=== PATIENT | female | born 1940 | race Caucasian/White ===

== ENCOUNTER 2018-01-28 08:52 | Emergency (ER) | payer BC, MEDICARE ==
--- NOTE | 2018-01-28 09:50 | EDM.PDOC ---
ED HPI GENERAL MEDICAL PROBLEM - General Chief Complaint: Upper Extremity Injury/Pain Stated Complaint: LEFT ARM CANNOT MOVE IT Time Seen by Provider: 01/28/18 09:49 Source of Information: Reports: Patient History Limitations: Reports: No Limitations - History of Present Illness INITIAL COMMENTS - FREE TEXT/NARRATIVE: pt fell abut 10 thirty last nite and hit her left elebow, She now is not able to move the arm without pain and she can not extend the arm. Onset: Other (pt fell last nite. ) Duration: Hour(s): Location: Reports: Upper Extremity, Left Associated Symptoms: Reports: No Other Symptoms, Other (pt has normal sensation in the hand and she has a good pulse present. ) Left Elbow Pain Score (Numeric/FACES): 3 - Related Data Allergies Allergy/AdvReac Type Severity Reaction Status Date / Time aspirin Allergy Cannot Verified 01/28/18 09:25 Remember bee venom protein (honey bee) Allergy Anaphylactic Verified 01/28/18 09:25 Shock Home Meds: Home Meds Ca Carbonate/Vitamin D3/Vit K [Calcium + D Soft Chewable Tab] 1 tab PO ASDIRECTED 01/28/18 [History] EPINEPHrine [Epinephrine] 01/28/18 [History] Simvastatin [Zocor] 40 mg PO DAILY 01/28/18 [History] Past Medical History HEENT History: Reports: Impaired Vision, Other (See Below) Other HEENT History: tenitis Cardiovascular History: Reports: 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: - Infectious Disease History Infectious Disease History: Reports: Chicken Pox, Mumps, Other (See Below) Other Infectious Disease History: polio - Past Surgical History GI Surgical History: Reports: Cholecystectomy Social & Family History - Tobacco Use Smoking Status *Q: Never Smoker - Caffeine Use Caffeine Use: Reports: Coffee - Alcohol Use Days Per Week of Alcohol Use: 7 Number of Drinks Per Day: 1 Total Drinks Per Week: 7 - Recreational Drug Use Recreational Drug Use: No Review of Systems - Review of Systems Review Of Systems: See Below Constitutional: Reports: No Symptoms Eyes: Reports: No Symptoms Ears: Reports: No Symptoms Nose: Reports: No Symptoms Mouth/Throat: Reports: No Symptoms Respiratory: Reports: No Symptoms Cardiovascular: Reports: No Symptoms GI/Abdominal: Reports: No Symptoms Musculoskeletal: Reports: Other (pain and swelling in the left elebow. ) Skin: Reports: No Symptoms Neurological: Reports: No Symptoms ED EXAM, GENERAL - Physical Exam Exam: See Below Free Text/Narrative:: Pt has pain and swelling in the left elebow. She has an area where the skin is tented . Thre are no open lesions. Exam Limited By: No Limitations General Appearance: Alert, Anxious Extremities: Other ( left elebow is swollen and there is an area where the skin is tented. An xray revealed a fraCTURE IN THE DISTAL HUMERUS WITH DISPLACEMENT. sHE HAS A NORMAL PULSE. Ira HAS NORMAL SENSATION IN THE HAND. ) Neurological: Alert, Oriented Course - Vital Signs Last Recorded V/S: Last Vital Signs Temp 36.0 C 01/28/18 09:27 Pulse 65 01/28/18 09:27 Resp 16 01/28/18 09:27 BP 139/55 L 01/28/18 09:27 Pulse Ox 95 01/28/18 09:27 - Orders/Labs/Meds Orders: Active Orders 24 hr Category Date Time Status Elbow 2V Lt [CR] Stat Exams 01/28/18 09:48 Taken - Re-Assessments/Exams Free Text/Narrative Re-Assessment/Exam: 01/28/18 11:33 PT WAS IMBOLIZED. dR Peters WAS CONSULTED AND A PICTURE OF THE XRAY WAS SENT TO THE dR. tHE PT WAS DIRECTED TO GO TO THE [facility] er Departure - Departure Time of Disposition: 11:34 Disposition: DC/Tfer to Acute Hospital 02 Condition: Fair Clinical Impression: Fracture of distal end of humerus - Discharge Information Referrals: PCP,None [Primary Care Provider] - Forms: ED Department Discharge Care Plan Goals: PER dR PETERS THE PT IS TO GO TO THE ER [facility]. XRAYS WERE PLACED ON DISCK - My Orders Last 24 Hours: My Active Orders 01/28/18 09:48 Elbow 2V Lt [CR] Stat - Assessment/Plan Last 24 Hours: My Active Orders 01/28/18 09:48 Elbow 2V Lt [CR] Stat
--- NOTE | 2018-01-30 09:09 | CR ---
Elbow 2V Lt CLINICAL HISTORY: Pain FINDINGS: Patient has a posteriorly displaced epicondylar fracture of the distal humerus. Radius and ulna appear intact. Impression: Displaced epicondylar fracture
== END 2018-01-28 11:47 ==
LOC: JP.ED 08:52
DX: S42.402A Unspecified fracture of lower end of left humerus, initial encounter for closed fracture (principal); E78.00 Pure hypercholesterolemia, unspecified; Z88.6 Allergy status to analgesic agent; Z91.030 Bee allergy status; Z79.899 Other long term (current) drug therapy
CPT/HCPCS: 73070-26-LT; 73070-LT; 99284

== ENCOUNTER 2018-03-25 08:32 | Emergency (ER) | payer MEDICARE ==
[2018-03-25] MEDS ORDERED: Acetaminophen 325 MG Tab PO ONE (09:18)
--- NOTE | 2018-03-25 09:20 | EDM.PDOC ---
ED HPI GENERAL MEDICAL PROBLEM - General Chief Complaint: Upper Extremity Injury/Pain Stated Complaint: R WRIST INJURY Time Seen by Provider: 03/25/18 09:16 Source of Information: Reports: Patient, Family, RN Notes Reviewed History Limitations: Reports: No Limitations - History of Present Illness INITIAL COMMENTS - FREE TEXT/NARRATIVE: 77-year-old female presents emergency department today after a fall on outstretched right hand earlier this morning, she has an obvious deformity pain is controlled no other complaints no loss of consciousness no head injury Right Wrist Pain Score (Numeric/FACES): 10 - Related Data Allergies Allergy/AdvReac Type Severity Reaction Status Date / Time aspirin Allergy Cannot Verified 03/25/18 09:27 Remember bee venom protein (honey bee) Allergy Anaphylactic Verified 03/25/18 09:27 Shock Home Meds: Home Meds Ca Carbonate/Vitamin D3/Vit K [Calcium + D Soft Chewable Tab] 1 tab PO ASDIRECTED 01/28/18 [History] EPINEPHrine [Epinephrine] 1 injection IM ASDIRECTED 01/28/18 [History] Simvastatin [Zocor] 40 mg PO DAILY 01/28/18 [History] oxyCODONE 1 tab PO ASDIRECTED 03/25/18 [History] oxyCODONE HCl/Acetaminophen [Oxycodone-Acetaminophen 5-325] 1 - 2 tab PO ASDIRECTED 03/25/18 [History] Past Medical History HEENT History: Reports: Impaired Vision, Other (See Below) Other HEENT History: tenitis Cardiovascular History: Reports: High Cholesterol 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: - Infectious Disease History Infectious Disease History: Reports: Chicken Pox, Mumps, Other (See Below) Other Infectious Disease History: polio - Past Surgical History GI Surgical History: Reports: Cholecystectomy Social & Family History - Tobacco Use Smoking Status *Q: Never Smoker - Caffeine Use Caffeine Use: Reports: Coffee Review of Systems - Review of Systems Review Of Systems: See Below Constitutional: Reports: No Symptoms Musculoskeletal: Reports: Joint Pain (Right wrist pain) Skin: Reports: Bruising Neurological: Reports: No Symptoms ED EXAM, GENERAL - Physical Exam Exam: See Below Free Text/Narrative:: Examination of the right wrist there is an obvious deformity with ulnar deviation of the wrist there is some bruising over the ulnar aspect radial pulse is +2 she does have full range of motion of all digits there is no tenderness at the elbow there is no tenderness at the shoulder ED TRAUMA EXTREMITY PROCEDURES - Splinting Left Upper Extremity Pre-Procedure NV Status: Normal Post-Procedure NV Status: Normal Splint Material: Fiberglass Splint Design: Sugar Tong Applied & Form Fitted By: Provider Provider Post-Splint Application NV Check: NV Status Normal, Good Position Complications: No Course - Vital Signs Last Recorded V/S: Last Vital Signs Temp 96.4 F 03/25/18 09:30 Pulse 76 03/25/18 09:30 Resp 16 03/25/18 09:30 BP 146/47 H 03/25/18 09:30 Pulse Ox 96 03/25/18 09:30 - Orders/Labs/Meds Orders: Active Orders 24 hr Category Date Time Status Wrist Comp Min 3V Rt [CR] Stat Exams 03/25/18 09:19 Taken Meds: Medications Discontinued Medications Generic Name Dose Route Start Last Admin Trade Name Freq PRN Reason Stop Dose Admin Acetaminophen 650 mg 03/25/18 09:18 03/25/18 10:06 Tylenol PO 03/25/18 09:19 650 mg NOW ONE Administration Departure - Departure Time of Disposition: 10:38 Disposition: Home, Self-Care 01 Condition: Fair Clinical Impression: Colles' fracture of right radius Qualifiers: Encounter type: initial encounter Fracture type: closed Qualified Code(s): S52.531A - Colles' fracture of right radius, initial encounter for closed fracture - Discharge Information Referrals: PCP,None [Primary Care Provider] - Forms: ED Department Discharge Additional Instructions: Please follow-up with your orthopedic provider on Tuesday, call return to the emergency department worsening of symptoms - My Orders Last 24 Hours: My Active Orders 03/25/18 09:19 Wrist Comp Min 3V Rt [CR] Stat - Assessment/Plan Last 24 Hours: My Active Orders 03/25/18 09:19 Wrist Comp Min 3V Rt [CR] Stat Plan: Assessment Acuity = acute Site and laterality = Colles' fracture right closed distal radius Etiology = secondary to fall on outstretched hand Manifestations = none Location of injury = Home Lab values = x-ray describes fracture above Plan Called discussed case with orthopedics recommended sugar tong splint and offered to do surgery in the morning however patient declined she would prefer to follow-up with her orthopedic surgeon in the [facility], therefore she will call on Tuesday morning for an appointment, Tylenol as needed for pain control This note was dictated using [employer] voice recognition software please call with any questions on syntax or grammar.
--- NOTE | 2018-03-27 09:17 | CR ---
Right wrist There is an impacted comminuted fracture of the distal radial metaphysis. There is involvement of the articular surface. There is a fracture of the ulnar styloid process. The carpal bones are intact. Impression: 1. Comminuted fracture wrist radial metaphysis. 2. Ulnar styloid process fracture.
== END 2018-03-25 11:03 | disposition home or self-care (01) ==
LOC: JP.ED 08:32
DX: S52.531A Colles' fracture of right radius, initial encounter for closed fracture (principal); Z88.6 Allergy status to analgesic agent; Z91.030 Bee allergy status; W19.XXXA Unspecified fall, initial encounter
CPT/HCPCS: 29125; 73110; 99284; A9270